=== PATIENT | female | born 1940 ===

== ENCOUNTER → 2018-06-17 | Outpatient (CLI) | payer OTHER, MEDICARE | LOC: C.LAB 14:15 | DX: J18.9 Pneumonia, unspecified organism (principal); M62.81 Muscle weakness (generalized); R53.83 Other fatigue ==

== ENCOUNTER 2018-06-19 16:57 | Outpatient (CLI) | payer OTHER, MEDICARE | END 2018-06-19 16:58 | disposition home or self-care (01) | LOC: C.LAB 16:57 → C.MHG 16:58 | DX: R07.89 Other chest pain (principal) ==